=== PATIENT | female | born 1945 | race Caucasian/White ===

== ENCOUNTER → 2017-02-09 | Outpatient (CLI) | payer MEDICARE | END | disposition home or self-care (01) | LOC: RAD.S 13:31 | PROC: 3E0S3BZ Introduction of Anesthetic Agent into Epidural Space, Percutaneous Approach (ICD-10-PCS; principal; 2017-02-09) | PROC: 3E0S33Z Introduction of Anti-inflammatory into Epidural Space, Percutaneous Approach (ICD-10-PCS; principal; 2017-02-09) | DX: M54.5 Low back pain (principal) ==

== ENCOUNTER → 2017-02-14 | Outpatient (CLI) | payer MEDICARE | END | disposition home or self-care (01) | LOC: RAD.S 13:20 | PROC: 3E0R33Z Introduction of Anti-inflammatory into Spinal Canal, Percutaneous Approach (ICD-10-PCS; principal; 2017-02-14) | DX: M54.9 Dorsalgia, unspecified (principal) ==

== ENCOUNTER → 2017-02-23 | Outpatient (CLI) | payer MEDICARE | END | disposition home or self-care (01) | LOC: RAD.S 09:36 | PROC: 3E0R33Z Introduction of Anti-inflammatory into Spinal Canal, Percutaneous Approach (ICD-10-PCS; principal; 2017-02-23) | DX: M54.9 Dorsalgia, unspecified (principal); Z98.890 Other specified postprocedural states ==

== ENCOUNTER 2017-03-05 07:22 | Day surgery (SDC) | payer MEDICARE ==
[~2017-03-05] VITALS: Ht 167.6 cm; Wt 53.9 kg
== END 2017-03-05 10:45 | disposition home or self-care (01) ==
LOC: RAD.S 07:22 → EDSTATUS 09:00 → RAD.S 09:00
DX: M54.5 Low back pain (principal); Z79.899 Other long term (current) drug therapy

== ENCOUNTER 2017-03-13 07:40 | Day surgery (SDC) | payer MEDICARE | END 2017-03-13 10:36 | disposition home or self-care (01) | DX: M54.5 Low back pain (principal); Z79.899 Other long term (current) drug therapy ==